=== PATIENT | female | born 1970 | race Caucasian/White ===

== ENCOUNTER 2016-12-14 13:40 | Inpatient (IN) | payer MEDICAID ==
--- NOTE | 2016-12-14 13:47 | EDPHY ---
H & P Time Seen by Provider: 12/14/16 13:46 HPI/ROS: CHIEF COMPLAINT: Abdominal pain, bloody diarrhea HISTORY OF PRESENT ILLNESS: The patient presents to the emergency department with abdominal pain and bloody diarrhea. The patient's symptoms began over the past day. The patient reports moderate to severe pain. She reports associated nausea. The patient is currently living at [facility]. She has been living air since the middle of October. She tells me she is receiving palliative care secondary to alcoholic cirrhosis. The patient reports she is on a number of medications for her end-stage liver disease. The patient denies recent antibiotic use. The patient denies prior history of dysentery or bloody diarrhea. REVIEW OF SYSTEMS: A comprehensive 10 point review of systems is otherwise negative aside from elements mentioned in the history of present illness. Source: Patient Exam Limitations: No limitations - Medical/Surgical History PMH: Past medical history: Cirrhosis - Family History Significant Family History: No pertinent family hx - Social History Smoking Status: Current some day smoker - Physical Exam Exam: General Appearance: Thin female, deconditioned, cachectic Eyes: Scleral icterus noted ENT, Mouth: Mucous membranes moist Respiratory: There are no retractions, lungs are clear to auscultation Cardiovascular: Regular rate and rhythm Gastrointestinal: Protuberant, mild fluid wave, tenderness to palpation left lower quadrant Neurological: A&O, normal motor function, normal sensory exam, normal cranial nerves Skin: Warm and dry, no rashes Musculoskeletal: Neck is supple nontender Extremities: symmetrical, full range of motion Constitutional: Initial Vital Signs Temperature (C) 36.8 C 12/14/16 13:56 Heart Rate 105 H 12/14/16 13:56 Respiratory Rate 18 12/14/16 13:56 Blood Pressure 115/70 12/14/16 13:56 O2 Sat (%) 94 12/14/16 13:56 O2 Delivery Mode Room Air O2 (L/minute) 2 Allergies/Adverse Reactions: No Known Allergies Allergy (Unverified 12/14/16 13:50) Home Medications: Medication Instructions Recorded Albuterol 12/14/16 BENADRYL 12/14/16 GUAIFENESIN 12/14/16 LACTULOSE 12/14/16 Lasix 12/14/16 Levemir 12/14/16 Lexapro 12/14/16 Multi-Vitamin Daily 12/14/16 Nicotine Patch 12/14/16 Ondansetron 12/14/16 Pepcid 12/14/16 Rifaximin 12/14/16 Spironolactone 12/14/16 oxyCODONE IR 12/14/16 traZODone 12/14/16 Medical Decision Making - Diagnostics Imaging Results: Imaging Impressions Abdomen CT 12/14/16 14:17 Impression: 1. Near diffuse colonic thickening suspicious for colitis. There is no evidence for perforation. 2. Splenomegaly with collateral veins and gastric varices, likely secondary to the chronically occluded splenic vein, which may be secondary to a previous episode of pancreatitis. 3. Airways disease. Pulmonary nodules may represent bronchiolitis. Results discussed with Conner Solis at 3:00 PM General information for patients regarding this examination can be found at [email or web address]. If you have questions or comments about this report, please contact me at [phone] (hospital) or [phone] (cell). ED Course/Re-evaluation: The patient presents to the ED for evaluation of significant abdominal pain. The patient reportedly has had bloody diarrhea. She does live at a senior living facility. The patient does have a history of cirrhosis and alcoholic hepatitis. She has a history of esophageal varices encephalopathy. She has chronic pancreatitis. The patient was noted to be fairly tender in her left lower quadrant. A CT scan of the abdomen pelvis was obtained which demonstrates evidence of colitis without perforation or abscess. The patient also has evidence of a chronic mesenteric thrombosis. The patient had an IV established. She received multiple doses of IV Dilaudid. The patient was reexamined at 4:30 p.m.. She continues to have significant abdominal tenderness. I have ordered a Clostridium difficile test. The patient will require admission to the hospital for pain control this evening. Consultation is made with Dr. Birmingham from the hospitalist service. Differential Diagnosis: Differential diagnosis considered includes colitis, diverticulitis, perforation , obstruction, appendicitis, peritonitis - Data Points Laboratory Results: Laboratory Results 12/14/16 14:10 12/14/16 14:10 12/14/16 12/14/16 12/14/16 14:10 14:10 14:10 WBC 10.99 10^3/uL H 10^3/uL (3.80-9.50) RBC 4.48 10^6/uL 10^6/uL (4.18-5.33) Hgb 13.7 g/dL g/dL (12.6-16.3) POC Hgb Hct 39.1 % % (38.0-47.0) POC Hct MCV 87.3 fL fL (81.5-99.8) MCH 30.6 pg pg (27.9-34.1) MCHC 35.0 g/dL g/dL (32.4-36.7) RDW 13.3 % % (11.5-15.2) Plt Count 193 10^3/uL 10^3/uL (150-400) MPV 9.6 fL fL (8.7-11.7) Neut % (Auto) 87.0 % H % (39.3-74.2) Lymph % (Auto) 7.4 % L % (15.0-45.0) [place] % (Auto) 4.8 % % (4.5-13.0) Eos % (Auto) 0.1 % L % (0.6-7.6) Baso % (Auto) 0.2 % L % (0.3-1.7) Nucleat RBC Rel Count 0.0 % % (0.0-0.2) Absolute Neuts (auto) 9.57 10^3/uL H 10^3/uL (1.70-6.50) Absolute Lymphs (auto) 0.81 10^3/uL L 10^3/uL (1.00-3.00) Absolute Monos (auto) 0.53 10^3/uL 10^3/uL (0.30-0.80) Absolute Eos (auto) 0.01 10^3/uL L 10^3/uL (0.03-0.40) Absolute Basos (auto) 0.02 10^3/uL 10^3/uL (0.02-0.10) Absolute Nucleated RBC 0.00 10^3/uL 10^3/uL (0-0.01) Immature Gran % 0.5 % % (0.0-1.1) Immature Gran # 0.05 10^3/uL 10^3/uL (0.00-0.10) PT 16.3 SEC H SEC (12.0-15.0) INR 1.31 H (0.83-1.16) APTT 38.5 SEC H SEC (23.0-38.0) POC Sodium Sodium 132 mEq/L L mEq/L (134-144) POC Potassium Potassium 3.6 mEq/L mEq/L (3.5-5.2) POC Chloride Chloride 99 mEq/L mEq/L (97-110) Carbon Dioxide 21 mEq/l L mEq/l (22-31) Anion Gap 12 mEq/L mEq/L (8-16) POC BUN BUN 6 mg/dL L mg/dL (7-23) Creatinine 0.4 mg/dL L mg/dL (0.6-1.0) POC Creatinine Estimated GFR > 60 Glucose 144 mg/dL H mg/dL (70-100) POC Glucose Calcium 9.6 mg/dL mg/dL (8.5-10.4) Lipase 15.0 IU/L L IU/L (23-300) 12/14/16 14:08 WBC RBC Hgb POC Hgb 14.6 gm/dL gm/dL (12.3-15.9) Hct POC Hct 43 % % (35.5-47.5) MCV MCH MCHC RDW Plt Count MPV Neut % (Auto) Lymph % (Auto) [place] % (Auto) Eos % (Auto) Baso % (Auto) Nucleat RBC Rel Count Absolute Neuts (auto) Absolute Lymphs (auto) Absolute Monos (auto) Absolute Eos (auto) Absolute Basos (auto) Absolute Nucleated RBC Immature Gran % Immature Gran # PT INR APTT POC Sodium 136 mEq/L mEq/L (134-144) Sodium POC Potassium 3.4 mEq/L mEq/L (3.3-5.0) Potassium POC Chloride 96 mEq/L mEq/L (96-108) Chloride Carbon Dioxide Anion Gap POC BUN 3 mg/dL L mg/dL (7-23) BUN Creatinine POC Creatinine 0.3 mg/dL L mg/dL (0.6-1.2) Estimated GFR Glucose POC Glucose 143 mg/dL H mg/dL (70-100) Calcium Lipase Medications Given: Discontinued Medications Hydromorphone HCl (Dilaudid) 0.5 mg IVP EDNOW ONE Stop: 12/14/16 15:03 Last Admin: 12/14/16 15:02 Dose: 0.5 mg Point of Care Test Results: 12/14/16 14:08 POC Sodium 136 POC Potassium 3.4 POC Chloride 96 POC BUN 3 L POC Creatinine 0.3 L POC Glucose 143 H Departure - Departure Disposition: Home, Routine, Self-Care Clinical Impression: Acute colitis Cirrhosis Qualifiers: Hepatic cirrhosis type: alcoholic cirrhosis Ascites presence: without ascites Qualified Code(s): K70.30 - Alcoholic cirrhosis of liver without ascites Condition: Fair Referrals: Patient,NotPresent [Unknown] - As per Instructions
[2016-12-14 14:18] LABS: % IMMATURE GRANULYOCYTES 0.5 % (0.0-1.1); ABSOLUTE IMMATURE GRANULOCYTES 0.05 10^3/uL (0.00-0.10); ADD DIFF? NO; ADD MORPH? NO; ADD SCAN? NO; ATYPICAL LYMPHOCYTE FLAG 0 (0-99); FRAGMENT RBC FLAG 0 (0-99); HEMATOCRIT 39.1 % (38.0-47.0); HEMOGLOBIN 13.7 g/dL (12.6-16.3); LEFT SHIFT FLG 10 (0-99); LIPEMIA HEMOLYSIS FLAG 90 (0-99); MEAN CELL HEMOGLOBIN 30.6 pg (27.9-34.1); MEAN CELL VOLUME 87.3 fL (81.5-99.8); MEAN PLATELET VOLUME 9.6 fL (8.7-11.7); PLATELET CLUMPS FLAG 0 (0-99); PLATELET COUNT 193 10^3/uL (150-400); RED BLOOD CELL COUNT 4.48 10^6/uL (4.18-5.33); RED CELL DISTRIBUTION WIDTH 13.3 % (11.5-15.2)
[2016-12-14] MEDS ORDERED: IOPAMIDOL (ISOVUE-300) 100 ML BTL IV ONE (14:26)
[2016-12-14 14:27] LABS: INR 1.31 (0.83-1.16); PROTIME(PATIENT) 16.3 SEC (12.0-15.0)
[2016-12-14 14:28] LABS: APTT 38.5 SEC (23.0-38.0)
[2016-12-14] MEDS ORDERED: HYDROmorphONE/DILAUDID 1 MG/ML SYR ONE (14:31)
[2016-12-14 14:32] LABS: ANION GAP 12 mEq/L (8-16); CALCIUM 9.6 mg/dL (8.5-10.4); CARBON DIOXIDE 21 mEq/l (22-31); CHLORIDE 99 mEq/L (97-110); CREATININE 0.4 mg/dL (0.6-1.0); GLOMERULAR FILTRATION RATE > 60; GLUCOSE 144 mg/dL (70-100); POTASSIUM 3.6 mEq/L (3.5-5.2); SODIUM 132 mEq/L (134-144)
[2016-12-14] MEDS ORDERED: HYDROmorphONE/DILAUDID 1 MG/ML SYR IVP ONE ×2 (15:02→16:52)
[2016-12-14] MEDS ORDERED: VANCOMYCIN 125 MG/2.5 ML UDL PO SCH (18:57)
[2016-12-14] MEDS ORDERED: D50W 25 GM/50 ML SYR IVP PRN (19:25)
[2016-12-14] MEDS ORDERED: PANTOPRAZOLE SODIUM 40 MG in NS 100 ML IV ONE (19:30)
[2016-12-14] MEDS: HYDROmorphONE/DILAUDID 1 MG/ML SYR IVP PRN (19:48)
[2016-12-14] MEDS: NS W/ 20 KCl/L 1,000 ML IV SCH (19:49)
[2016-12-14] MEDS ORDERED: PANTOPRAZOLE SODIUM 80 MG in NS 100 ML IV SCH (20:00)
[2016-12-14 20:13] LABS: ALBUMIN 3.6 g/dL (3.5-5.0); BILIRUBIN,TOTAL 1.8 mg/dL (0.1-1.4); BILIRUBIN-CONJUGATED 1.2 mg/dL (0.0-0.5); BILIRUBIN-UNCONJUGATED 0.6 mg/dL (0.0-1.1); TOTAL PROTEIN 7.9 g/dL (6.3-8.2)
--- NOTE | 2016-12-14 20:45 | GHP ---
[f rep st] HISTORY AND PHYSICAL DATE OF ADMISSION: 12/14/2016 CHIEF COMPLAINT: Abdominal pain, vomiting and bloody diarrhea. HISTORY OF PRESENT ILLNESS: The patient is a 46-year-old female with history of alcohol dependence who was recently hospitalized for alcoholic hepatitis and progressed to cirrhosis with hepatic encephalopathy requiring lactulose and Xifaxan. She was discharged from her most recent hospitalization in mid October 2016 to [facility]. She presents to the emergency department reporting general malaise last night and this morning awoke with bloody diarrhea which has occurred about 4 times today. She recently up- titrated her lactulose from twice daily to 3 times daily and reports having 3-4 stools a day at baseline. She has not had an increase in the frequency of her stool but the change has been the presence of bloody stool. She also reports vomiting though denies hematemesis or coffee-grounds emesis. She denies fevers or chills. She complains of crampy abdominal pain but has not had increased abdominal girth. She was initially admitted on September 27 to [facility] with alcohol withdrawal and an upper GI bleed, thought due to portal hypertensive gastropathy. She was discharged on October 04 but returned the following day with ascites and was started on Lasix and spironolactone. Later in September she was again admitted with acute alcoholic hepatitis with a bilirubin in the 20s and discriminant function greater than 40. She was treated with steroids with plans for 3 week taper though this was discontinued due to increasing bilirubin and it was felt the steroids were not providing benefit. In addition, she developed C diff diarrhea and was treated with oral vancomycin. She is unsure how long her treatment course was. She also suffered from influenza during that most recent hospitalization and developed hepatic encephalopathy at which time she was started on lactulose once her C diff diarrhea had resolved. She had been doing fairly well at [facility] since then and has followed up with GI the [facility]. During her last visit on December 12, it was noted that her abdominal girth had decreased from 36 inches to 33 inches. She has also had about a 5 pound weight loss from 99-95 pounds. Her edema has resolved. Her mentation has improved. She has maintained sobriety since September 24, 2016 , and wishes to pursue a liver transplant. She is followed by Dr. Jing Bersentes. In the emergency department, CT revealed diffuse colitis but no significant ascites. She is hemodynamically stable and afebrile. She was given a total of 1 g of IV hydromorphone for pain control and is admitted to the hospital for further management. PAST MEDICAL HISTORY: 1. Alcoholic hepatitis. 2. Alcoholic cirrhosis with a MELD score of 27 in October of 2016. This is improved to 5 per her labs 2 days ago. 3. Diabetes mellitus. 4. Hepatic encephalopathy. 5. History of chronic pancreatitis. 6. Malnutrition. MEDICATIONS: Please see [employer] for complete updated outpatient medication list. ALLERGIES: No known drug allergies. SOCIAL HISTORY: The patient lives at [facility]. She denies tobacco use. She is a former smoker, quit in September 27, 2016. Previously had at least a 15 pack year history. She is abstinent from alcohol. 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 She is . There are no family members at her bedside. FAMILY HISTORY: Reviewed and noncontributory. REVIEW OF SYSTEMS: A 10-point review of systems was performed and is negative except as per HPI. OBJECTIVE: VITAL SIGNS: Temperature 36.6, blood pressure 120/80, heart rate 77 , respiratory rate is 16. She is 94% on room air. GENERAL: The patient is awake, alert, oriented, no acute distress. She appears malnourished. HEENT: Head is atraumatic, normocephalic. Pupils equal, round, react to light. Extraocular muscles intact. Oropharynx is clear. Mucous membranes are dry. NECK: Supple. There is no JVD. HEART: Regular rate and rhythm without murmur. LUNGS: Clear to auscultation bilaterally. ABDOMEN: Soft, nondistended. There is diffuse mild tenderness to palpation in all 4 quadrants with some voluntary guarding. No rebound, rigidity or peritoneal signs are detected. Fluid wave is negative. EXTREMITIES: Without cyanosis, clubbing, or edema. NEUROLOGIC: Grossly nonfocal. There is no asterixis. LABORATORY DATA: CBC reveals a white blood cell count of 10.9 with 87% neutrophils. INR is 1.3. Complete metabolic panel is remarkable for sodium 132 , bicarb 21, BUN 6, creatinine 0.4, glucose 144, lipase is normal at 15. Abdomen CT from the emergency department shows diffuse colon thickening, suspicious for colitis. No evidence of perforation, obstruction or ascites. ASSESSMENT AND PLAN: The patient is a 46-year-old female with history of alcoholic cirrhosis, hepatic encephalopathy and history of Clostridium difficile who is admitted to the hospital with bloody diarrhea. 1. Colitis with bloody diarrhea. I am most concerned for infectious colitis, specifically recurrent Clostridium difficile given her history of prior Clostridium difficile 2 months ago. GI pathogen panel is ordered. I am going to treat her empirically with oral vancomycin but given her vomiting I will also cover her with IV Flagyl. I discussed the case with Gastroenterology who will see the patient tomorrow. Will trend q.8 hour hemoglobin and hematocrit. IVF's for hydration. She will be given a PPI and clear liquid diet as tolerated for now. 2. Alcoholic cirrhosis with a history of ascites. She currently has no appreciable ascites on her imaging. Her MELD score has improved from 27 in September 2016 to 5.5, per her labs 2 days ago. Since she is hemodynamically stable, I will plan to continue her diuretics as soon as her med rec is completed. She will be placed on a sodium restricted diet. She had a negative AFP in October of 2016. 3. History of gastric varices. There has been no hematemesis suggestive of an active variceal bleed. Will start PPI. Should she develop any hematemesis, I will add an octreotide drip though at this point, this does not seem to be the source of bleeding. 4. Hepatic encephalopathy. Given her pain in the setting of colitis and frequent diarrheal stools, I am going to hold her lactulose for now though I will continue her Xifaxan once her med rec is completed. 5. Diabetes mellitus. Will order sliding scale insulin for now while we await medication reconciliation. We can resume her basal insulin at that time. Her blood sugars were fairly well controlled with a blood sugar of 140 on arrival. 6. History of Clostridium difficile. 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 We may consider discussing this with Infectious Disease to see if she is a candidate for fidaxomicin. 7. DVT prophylaxis. Pharmacologic prophylaxis is contraindicated given her rectal bleeding. We will place SCDs. 8. Disposition. Patient admitted to inpatient status. I suspect she will require greater than 48 hours hospitalization for ongoing management of her colitis and chronic cirrhosis. CODE STATUS: Patient is full code. /[id number]/MODL MTDD
[2016-12-14] MEDS: VANCOMYCIN 125 MG/2.5 ML UDL PO SCH (21:07)
[2016-12-14] MEDS: ONDANSETRON DISINTEGRATING 4 MG TAB PO PRN (21:13)
[2016-12-14] MEDS: ONDANSETRON 4 MG/2 ML VIAL IVP PRN (21:51)
[2016-12-14 22:27] LABS: HEMATOCRIT 39.8 % (38.0-47.0); HEMOGLOBIN 13.8 g/dL (12.6-16.3)
[2016-12-14] MEDS ORDERED: METOCLOPRAMIDE 10 MG/2 ML VIAL IVP PRN (23:22)
[2016-12-14] MEDS ORDERED: HYDROmorphONE/DILAUDID 2 MG/ML INJ IVP ONE (23:24)
[2016-12-15] MEDS: PANTOPRAZOLE SODIUM 80 MG in NS 100 ML IV SCH ×2 (00:33→10:07)
[2016-12-15] MEDS ORDERED: FLUTICASONE NASAL 120 SPRAYS/16 GM MDI EACHNARE PRN (01:18)
[2016-12-15] MEDS ORDERED: CLOBETASOL PROPIONATE TP PRN (01:18)
[2016-12-15] MEDS ORDERED: OXYCODONE HCL 10 MG PO PRN (01:18)
[2016-12-15] MEDS ORDERED: ALBUTEROL 60 PUFFS/8 GM MDI IH PRN (01:18)
[2016-12-15] MEDS ORDERED: traZODone 50 MG TAB PO PRN (01:18)
[2016-12-15] MEDS: HYDROmorphONE/DILAUDID 1 MG/ML SYR IVP PRN ×2 (03:10→08:02)
[2016-12-15] MEDS: ONDANSETRON 4 MG/2 ML VIAL IVP PRN (03:10)
[2016-12-15] MEDS: VANCOMYCIN 125 MG/2.5 ML UDL PO SCH ×2 (05:01→13:46)
[2016-12-15] MEDS: oxyCODONE IR 5 MG TAB PO PRN ×6 (05:02→21:39)
[2016-12-15 05:26] LABS: % IMMATURE GRANULYOCYTES 0.3 % (0.0-1.1); ABSOLUTE IMMATURE GRANULOCYTES 0.05 10^3/uL (0.00-0.10); ADD DIFF? NO; ADD MORPH? NO; ADD SCAN? NO; ATYPICAL LYMPHOCYTE FLAG 10 (0-99); FRAGMENT RBC FLAG 0 (0-99); HEMATOCRIT 37.9 % (38.0-47.0); HEMOGLOBIN 13.2 g/dL (12.6-16.3); LEFT SHIFT FLG 10 (0-99); LIPEMIA HEMOLYSIS FLAG 90 (0-99); MEAN CELL HEMOGLOBIN 30.8 pg (27.9-34.1); MEAN CELL HEMOGLOBIN CONCENTR. 34.8 g/dL (32.4-36.7); MEAN CELL VOLUME 88.3 fL (81.5-99.8); MEAN PLATELET VOLUME 9.8 fL (8.7-11.7); PLATELET CLUMPS FLAG 10 (0-99); PLATELET COUNT 209 10^3/uL (150-400); RED BLOOD CELL COUNT 4.29 10^6/uL (4.18-5.33); RED CELL DISTRIBUTION WIDTH 13.6 % (11.5-15.2)
[2016-12-15 05:33] LABS: ANION GAP 11 mEq/L (8-16); CALCIUM 9.2 mg/dL (8.5-10.4); CARBON DIOXIDE 22 mEq/l (22-31); CHLORIDE 101 mEq/L (97-110); CREATININE 0.4 mg/dL (0.6-1.0); GLOMERULAR FILTRATION RATE > 60; GLUCOSE 141 mg/dL (70-100); POTASSIUM 3.6 mEq/L (3.5-5.2); SODIUM 134 mEq/L (134-144)
[2016-12-15] MEDS: ONDANSETRON DISINTEGRATING 4 MG TAB PO PRN ×2 (08:03→16:57)
[2016-12-15] MEDS: ESCITALOPRAM OXALATE 10 MG TAB PO SCH (08:13)
[2016-12-15] MEDS: RIFAXIMIN 550 MG TAB PO SCH ×2 (08:13→21:39)
[2016-12-15] MEDS: INSULIN LISPRO 100 UNIT/ML SC SCH ×3 (08:49→18:14)
[2016-12-15] MEDS: NICOTINE 14 MG/24 HR PATCH TD SCH (08:50)
[2016-12-15] MEDS ORDERED: FUROSEMIDE 40 MG TAB PO SCH (09:00)
[2016-12-15] MEDS ORDERED: SPIRONOLACTONE 50 MG TAB PO SCH (09:00)
--- NOTE | 2016-12-15 11:11 | GCON ---
[f rep st] CONSULTATION GI CONSULTATION. DATE OF CONSULTATION: 12/15/2016 REASON FOR CONSULTATION: Bloody diarrhea. HISTORY OF PRESENT ILLNESS: The patient is a 46-year-old female, who has been followed in our practice for history of alcoholic hepatitis and cirrhosis, diabetes mellitus, portal vein thrombosis with gastric varices and history of hepatic encephalopathy. She was last seen in our practice on 12/12/2016 by Patsy Rutledge PA-C and was doing well at that time on Xifaxan 550 mg p.o. twice daily for treatment of portal systemic encephalopathy. She was to follow up with Dr. Blanco in our practice today, albeit was hospitalized yesterday with acute onset of bloody diarrhea, and myalgias and arthralgias. I was asked by Dr. Birmingham to see the patient today for further evaluation and treatment of these symptoms. Since admission, she was been on IV PPI therapy and IV metronidazole and has had no further diarrhea. She continues to complain of myalgias and arthralgias requiring narcotics. She has denied any hematemesis, nausea or vomiting or mental confusion. MEDICATIONS(prior to admission): Albuterol inhaler 2 puffs twice daily. Bisacodyl 5 mg daily for constipation. Famotidine 20 mg p.o. daily. Furosemide 40 mg p.o. daily. Levemir 100 units subcu twice daily. NicoDerm patch q.24 hours. Oxycodone 10 mg p.o. three times daily p.r.n. pain. Rifaximin 550 mg p.o. twice daily. Spironolactone 50 mg p.o. twice daily. Trazodone 50 mg p.o. as needed for insomnia. ALLERGIES: None. PAST MEDICAL HISTORY: significant for alcoholic hepatitis, alcoholic cirrhosis , splenic vein thrombosis with gastric varices documented on EGD on 09/2016, history of hepatic encephalopathy, history of alcoholic pancreatitis, diabetes mellitus and COPD/asthma. PAST SURGICAL HISTORY: significant for x3, tubal ligation and endoscopy as noted above. Her last colonoscopy was performed in [address] [facility] and was reported as normal. SOCIAL HISTORY: She is disabled. She lives in [place]. She does not smoke tobacco though has been heavy smoker in the past. She has abstained from alcohol over the last several months. FAMILY HISTORY: Negative for GI malignancies or liver disease. REVIEW OF SYSTEMS: Significant for fatigue, myalgias, arthralgias, bloody diarrhea and abdominal cramping. Otherwise negative for comprehensive review of systems. PHYSICAL EXAMINATION: VITAL SIGNS: VITALS: temperature is 36.8 Celsius, pulse is 116 and regular, blood pressure 117/83, respiratory rate was 18, O2 saturation 96% on room air. GENERAL: A frail appearing cachectic woman lying in bed, appearing uncomfortable. INTEGUMENT: Mildly hyperpigmented. HEENT: Head atraumatic, normocephalic. Pupils equal, round, reactive to light. EOMs were intact. Sclerae nonicteric. Nares patent. Mucous membranes moist. Dentition fair. NECK: Supple. Trachea was midline. LYMPHATICS: No palpable cervical or axillary adenopathy. PULMONARY: Lungs clear to percussion and auscultation. CARDIOVASCULAR: Rapid rate. Normal S1, S2 without murmur. Peripheral pulses strong bilaterally. No pedal edema. GASTROINTESTINAL: Positive bowel sounds. Tenderness in all 4 quadrants to deep palpation without palpable mass or rebound. Positive spleen tip. No fluid wave noted. No shifting dullness or rebound tenderness. EXTREMITIES: Without deformity. NEURO: Patient was alert and oriented x3. There are no focal neurologic deficits. LABORATORY DATA: White count 16.43, hemoglobin 13.2, hematocrit 37.5, platelets 209,000. ProTime 16.3, INR 1.31, PTT 38.5. Sodium 134, potassium 3.6 , chloride 101, CO2 22, BUN 7, creatinine 0.4, bilirubin 1.8, conjugated 1.2, unconjugated 0.6, AST 36, ALT 24, ALP 173, lipase 15. Stool: PCR for GI infection was negative. CT scan of the abdomen revealed splenomegaly, splenic vein thrombosis, liver of normal size and homogeneous, collateral vessels of the splenic hilum with gastric varices. No esophageal varices. No ascites. Scattered calcifications throughout the pancreas consistent with chronic pancreatitis. There was thickening of the right and left colon wall consistent with acute colitis. IMPRESSION: 1. Acute onset diarrhea with blood in stool, likely acute infectious colitis, unlikely ischemic colitis as involvement in the entire colon and also unlikely inflammatory bowel disease. 2. Alcoholic liver disease with cirrhosis by history. 3. Splenic vein thrombosis with gastric varices. 4. Diabetes mellitus. 5. Chronic obstructive pulmonary disease/asthma. RECOMMENDATIONS: 1. IV hydration. 2. Continue with metronidazole. 3. Would continue with rifaximin 550 mg p.o. twice daily. 4. No need for acute evaluation with colonoscopy at this time. 5. Will follow with you. /[id number]/MODL MTDD
[2016-12-15] MEDS: NS W/ 20 KCl/L 1,000 ML IV SCH ×2 (13:39→21:37)
--- NOTE | 2016-12-15 13:58 | HOSPPROG ---
Hospitalist Progress Note Assessment/Plan: 46 yo F w cirrhosis here w BRBPR, colitis ?variceal bleed: i dont think so does have varices but no real hct drop despite IVF and BRBPR 1. dc ppi gtt- gibe daily po 2. follow hct bid colitis: gi pathogen panel neg, includimg for cdiff dc po vancomycin alcoholism: sober X almost three months cirrhosis: volume depleted by exam, so hold diuretics X 24 hours, especially while on IVF inr 1.3 proph: pharm VTE proph contraindicated given bleeding Subjective: case d/w dr khan. ct reviewed/interpreted by me- colitis Objective: Vital Signs Temp Pulse Resp BP Pulse Ox 37.1 C 101 H 17 102/69 98 12/15/16 11:25 12/15/16 11:25 12/15/16 11:25 12/15/16 11:25 12/15/16 11:25 Microbiology 12/14/16 20:06 Gastrointestinal Tract Panel (PCR) - Final Stool No Organism Detected Laboratory Results 12/15/16 04:38 12/14/16 12/15/16 12/16/16 05:59 05:59 05:59 Intake Total 971 1064 Output Total 600 Balance 371 1064 PT 16.3 SEC (12.0-15.0) H 12/14/16 14:10 INR 1.31 (0.83-1.16) H 12/14/16 14:10 - Physical Exam Constitutional: no apparent distress, appears nourished Eyes: PERRL, EOMI, icteric sclera Ears, Nose, Mouth, Throat: moist mucous membranes, hearing normal Cardiovascular: regular rate and rhythym, no murmur, rub, or gallop Respiratory: no respiratory distress, no rales or rhonchi Gastrointestinal: normoactive bowel sounds, soft, non-tender abdomen, No ascites , No guarding, No rebound Genitourinary: no bladder fullness, no bladder tenderness Skin: warm, normal color Musculoskeletal: full muscle strength ICD10 Worksheet Patient Problems: Problems Problem Status Onset Acute colitis Acute Cirrhosis Acute
[2016-12-15 14:05] LABS: HEMATOCRIT 36.9 % (38.0-47.0); HEMOGLOBIN 12.9 g/dL (12.6-16.3)
[2016-12-15] MEDS: INSULIN GLARGINE 100 UNITS/ML SYRINGE SC SCH (21:38)
[2016-12-16] MEDS: oxyCODONE IR 5 MG TAB PO PRN ×4 (00:33→22:09)
[2016-12-16] MEDS ORDERED: NS 500 ML IV ONE ×2 (02:22→11:30)
[2016-12-16] MEDS: KETOROLAC 30 MG/1 ML SDV IVP PRN ×3 (04:11→18:27)
[2016-12-16] MEDS: INSULIN LISPRO 100 UNIT/ML SC SCH ×3 (08:40→18:21)
[2016-12-16] MEDS: NICOTINE 14 MG/24 HR PATCH TD SCH (08:42)
[2016-12-16] MEDS: RIFAXIMIN 550 MG TAB PO SCH ×2 (08:43→22:08)
[2016-12-16] MEDS: ESCITALOPRAM OXALATE 10 MG TAB PO SCH (08:43)
[2016-12-16] MEDS ORDERED: NS 1,000 ML IV ONE (11:18)
--- NOTE | 2016-12-16 11:24 | HOSPPROG ---
Hospitalist Progress Note Assessment/Plan: 46 yo F w cirrhosis here w BRBPR, colitis ?variceal bleed: i dont think so does have varices but no real hct drop despite IVF and BRBPR 1. dc ppi gtt- gibe daily po 2. follow hct bid 3. hct stable colitis: gi pathogen panel neg, includimg for cdiff given cirrhosis, will treat w cipro/flagyl hypotension: suspect volume depletion in a patient w cirrhosis 1. dc diuretics 2. bolus 1 L diet: advance to regular alcoholism: sober X almost three months cirrhosis: volume depleted by exam, so hold diuretics X 24 hours, especially while on IVF inr 1.3 proph: pharm VTE proph contraindicated given bleeding Subjective: triggered sepsis alert this AM 2/2 hypotension. no further BRBPR. lasix given despite being held Objective: Vital Signs Temp Pulse Resp BP Pulse Ox 36.3 C 100 16 76/42 L 94 12/16/16 08:00 12/16/16 10:42 12/16/16 10:42 12/16/16 10:42 12/16/16 08:00 Microbiology 12/14/16 20:06 Gastrointestinal Tract Panel (PCR) - Final Stool No Organism Detected Laboratory Results 12/15/16 13:48 12/15/16 04:38 12/15/16 12/16/16 12/17/16 05:59 05:59 05:59 Intake Total 971 4039 Output Total 600 1100 500 Balance 371 2939 -500 PT 16.3 SEC (12.0-15.0) H 12/14/16 14:10 INR 1.31 (0.83-1.16) H 12/14/16 14:10 - Physical Exam Constitutional: no apparent distress, appears nourished Eyes: PERRL Ears, Nose, Mouth, Throat: moist mucous membranes, hearing normal Cardiovascular: regular rate and rhythym, no murmur, rub, or gallop Respiratory: no respiratory distress, no rales or rhonchi Gastrointestinal: normoactive bowel sounds, soft, non-tender abdomen Genitourinary: No irene in urethra Skin: warm, normal color Musculoskeletal: full muscle strength, no muscle tenderness Neurologic: AAOx3, sensation intact bilaterally Psychiatric: interacting appropriately, not anxious Lymph, Heme, Immunologic: no cervical LAD ICD10 Worksheet Patient Problems: Problems Problem Status Onset Acute colitis Acute Cirrhosis Acute
[2016-12-16 11:25] LABS: % IMMATURE GRANULYOCYTES 0.3 % (0.0-1.1); ABSOLUTE IMMATURE GRANULOCYTES 0.02 10^3/uL (0.00-0.10); ADD DIFF? NO; ADD MORPH? NO; ADD SCAN? NO; ATYPICAL LYMPHOCYTE FLAG 0 (0-99); FRAGMENT RBC FLAG 0 (0-99); HEMATOCRIT 31.4 % (38.0-47.0); HEMOGLOBIN 10.6 g/dL (12.6-16.3); LEFT SHIFT FLG 10 (0-99); LIPEMIA HEMOLYSIS FLAG 90 (0-99); MEAN CELL HEMOGLOBIN CONCENTR. 33.8 g/dL (32.4-36.7); MEAN CELL VOLUME 91.8 fL (81.5-99.8); MEAN PLATELET VOLUME 9.4 fL (8.7-11.7); PLATELET CLUMPS FLAG 0 (0-99); PLATELET COUNT 115 10^3/uL (150-400); RED BLOOD CELL COUNT 3.42 10^6/uL (4.18-5.33); RED CELL DISTRIBUTION WIDTH 13.5 % (11.5-15.2)
[2016-12-16] MEDS: CIPROFLOXACIN 400 MG/DEXTROSE 200 ML IV SCH ×2 (11:35→22:08)
[2016-12-16 11:48] LABS: ANION GAP 4 mEq/L (8-16); CALCIUM 7.7 mg/dL (8.5-10.4); CARBON DIOXIDE 22 mEq/l (22-31); CHLORIDE 109 mEq/L (97-110); CREATININE 0.4 mg/dL (0.6-1.0); GLOMERULAR FILTRATION RATE > 60; GLUCOSE 202 mg/dL (70-100); POTASSIUM 3.6 mEq/L (3.5-5.2); SODIUM 135 mEq/L (134-144)
--- NOTE | 2016-12-16 13:32 | SOAPPROG ---
SOAP Progress Note Assessment/Plan: Assessment: 1. Diarrhea; resolved(likely acute self-limited infectious colitis) 2. Chronic liver disease; stable. Plan: 1. I will sign off today; please call for further GI issues. 2. Patient to F/U with Dr Blanco next week. Adam Ruvalcaba MD 12/16/16 13:29 Subjective: CC: Diarrhea. Interval HPI: Patient have one formed BM today without cramping or blood in stool. Energy level better. Myalgias and arthralgias resolved. Objective: Vital Signs Temp Pulse Resp BP Pulse Ox 36.8 C 99 18 83/53 L 94 12/16/16 11:56 12/16/16 11:56 12/16/16 11:56 12/16/16 11:56 12/16/16 11:56 Laboratory Results 12/16/16 11:15 12/16/16 11:15 12/15/16 12/16/16 12/17/16 05:59 05:59 05:59 Intake Total 971 4039 Output Total 600 1100 500 Balance 371 2939 -500 PT 16.3 SEC (12.0-15.0) H 12/14/16 14:10 INR 1.31 (0.83-1.16) H 12/14/16 14:10 Physical Exam - Physical Exam General Appearance: alert, no apparent distress Respiratory: lungs clear, normal breath sounds Cardiac/Chest: normal peripheral pulses, regular rate, rhythm Abdomen: normal bowel sounds, non-tender, soft Skin: normal color, warm/dry Neuro/Psych: alert, normal mood/affect, oriented x 3 ICD10 Worksheet Patient Problems: Problems Problem Status Onset Acute colitis Acute Cirrhosis Acute
[2016-12-16] MEDS: INSULIN GLARGINE 100 UNITS/ML SYRINGE SC SCH (22:09)
[2016-12-17] MEDS: KETOROLAC 30 MG/1 ML SDV IVP PRN ×2 (05:00→10:54)
[2016-12-17] MEDS: oxyCODONE IR 5 MG TAB PO PRN (05:01)
[2016-12-17 05:32] LABS: % IMMATURE GRANULYOCYTES 0.4 % (0.0-1.1); ABSOLUTE IMMATURE GRANULOCYTES 0.02 10^3/uL (0.00-0.10); ADD DIFF? NO; ADD MORPH? NO; ADD SCAN? NO; ATYPICAL LYMPHOCYTE FLAG 10 (0-99); FRAGMENT RBC FLAG 0 (0-99); HEMATOCRIT 33.1 % (38.0-47.0); HEMOGLOBIN 11.1 g/dL (12.6-16.3); LEFT SHIFT FLG 0 (0-99); LIPEMIA HEMOLYSIS FLAG 80 (0-99); MEAN CELL HEMOGLOBIN 30.7 pg (27.9-34.1); MEAN CELL HEMOGLOBIN CONCENTR. 33.5 g/dL (32.4-36.7); MEAN CELL VOLUME 91.4 fL (81.5-99.8); MEAN PLATELET VOLUME 9.6 fL (8.7-11.7); PLATELET CLUMPS FLAG 0 (0-99); PLATELET COUNT 117 10^3/uL (150-400); RED BLOOD CELL COUNT 3.62 10^6/uL (4.18-5.33); RED CELL DISTRIBUTION WIDTH 13.1 % (11.5-15.2)
[2016-12-17 05:41] LABS: ANION GAP 5 mEq/L (8-16); CALCIUM 8.1 mg/dL (8.5-10.4); CARBON DIOXIDE 20 mEq/l (22-31); CHLORIDE 112 mEq/L (97-110); CREATININE 0.4 mg/dL (0.6-1.0); GLOMERULAR FILTRATION RATE > 60; GLUCOSE 75 mg/dL (70-100); POTASSIUM 3.4 mEq/L (3.5-5.2); SODIUM 137 mEq/L (134-144)
[2016-12-17] MEDS: INSULIN LISPRO 100 UNIT/ML SC SCH ×2 (08:45→13:26)
[2016-12-17] MEDS: NICOTINE 14 MG/24 HR PATCH TD SCH (08:55)
[2016-12-17] MEDS: RIFAXIMIN 550 MG TAB PO SCH (08:56)
[2016-12-17] MEDS: ESCITALOPRAM OXALATE 10 MG TAB PO SCH (08:57)
[2016-12-17] MEDS: CIPROFLOXACIN 400 MG/DEXTROSE 200 ML IV SCH (09:40)
[2016-12-17 11:34] VITALS: BP 89/59; PULSE 93; RESP 14; TEMP 98.4; O2SAT 97
--- NOTE | 2016-12-17 13:26 | HOSPPROG ---
Hospitalist Progress Note Assessment/Plan: 46 yo F w cirrhosis here w BRBPR, colitis ?variceal bleed: i dont think so does have varices but no real hct drop despite IVF and BRBPR 1. dc ppi gtt- gibe daily po 2. follow hct bid 3. hct stable colitis: gi pathogen panel neg, includimg for cdiff given cirrhosis, will treat w cipro/flagyl hypotension: suspect volume depletion in a patient w cirrhosis 1. dc diuretics 2. bolus 1 L diet: advance to regular alcoholism: sober X almost three months cirrhosis: volume depleted by exam, so hold diuretics X 24 hours, especially while on IVF inr 1.3 proph: dc to snf (lives there ) today > 30 minutes on dc Subjective: feels well. amenable to dc Objective: Vital Signs Temp Pulse Resp BP Pulse Ox 36.9 C 93 14 89/59 L 97 12/17/16 11:33 12/17/16 11:33 12/17/16 11:33 12/17/16 11:33 12/17/16 11:33 Laboratory Results 12/17/16 04:59 12/17/16 04:59 12/16/16 12/17/16 12/18/16 05:59 05:59 05:59 Intake Total 4039 850 Output Total 1100 2600 Balance 2939 -1750 PT 16.3 SEC (12.0-15.0) H 12/14/16 14:10 INR 1.31 (0.83-1.16) H 12/14/16 14:10 - Physical Exam Constitutional: no apparent distress, appears nourished Eyes: PERRL, anicteric sclera Ears, Nose, Mouth, Throat: moist mucous membranes, hearing normal Cardiovascular: regular rate and rhythym, no murmur, rub, or gallop Respiratory: no respiratory distress, no rales or rhonchi Gastrointestinal: normoactive bowel sounds, No ascites, No michael's sign, No guarding, No rebound Genitourinary: no bladder fullness Skin: warm, normal color Musculoskeletal: full muscle strength Neurologic: AAOx3 ICD10 Worksheet Patient Problems: Problems Problem Status Onset Acute colitis Acute Cirrhosis Acute
--- NOTE | 2016-12-17 13:30 | PDIAF ---
- Diagnosis Diagnosis: colitis; cirrhosis - Medication Management Discharge Medications: Medications to Continue on Transfer Albuterol [Proventil Inhaler HFA (*)] 2 puffs IH Q8H PRN 12/14/16 [Last Taken Unknown] Bisacodyl [Dulcolax] 5 mg PO DAILY PRN 12/14/16 [Last Taken Unknown] Bisacodyl [Dulcolax] 10 mg RC AD PRN 12/14/16 [Last Taken Unknown] Clobetasol Propionate [Clobex] 1 bhupinder TP BID PRN 12/14/16 [Last Taken Unknown] Escitalopram Oxalate [Lexapro] 5 mg PO DAILY 12/14/16 [Last Taken 12/12/16] Famotidine [Pepcid 20 MG (*)] 20 mg PO DAILY 12/14/16 [Last Taken 12/14/16] Fluticasone Nasal [Flonase Nasal [place]] 2 sprays NASAL BID PRN 12/14/16 [Last Taken Unknown] Furosemide [Lasix 40 MG (*)] 40 mg PO DAILY 12/14/16 [Last Taken 12/13/16] Hydrocortisone 1% [Hydrocortisone 1% cream (*)] 1 bhupinder TP Q12H PRN 12/14/16 [ Last Taken Unknown] Insulin Detemir [Levemir] 10 unit SQ HS 12/14/16 [Last Taken 12/13/16] Lactulose [Enulose] 30 ml PO TID PRN 12/14/16 [Last Taken 12/13/16] Multivitamins [Multivitamin (*)] 1 each PO DAILY 12/14/16 [Last Taken 12/12/16] Nicotine [Nicoderm Cq 14 mg (*)] 14 mg TD DAILY 12/14/16 [Last Taken Unknown] Ondansetron Odt [Zofran Odt 4 mg (*)] 4 mg PO Q6H PRN 12/14/16 [Last Taken 12/14] Oxycodone HCl [Dazidox] 10 mg PO Q8H PRN 12/14/16 [Last Taken 12/14/16 08:00] Rifaximin [Xifaxan] 550 mg PO BID 12/14/16 [Last Taken 12/11/16] Spironolactone [Aldactone] 50 mg PO BID 12/14/16 [Last Taken 12/13/16] guaiFENesin [Mucinex 600 MG (*)] 1,200 mg PO Q12H PRN 12/14/16 [Last Taken Unknown] traZODone [traZODONE 50MG (*)] 25 mg PO HS PRN 12/14/16 [Last Taken Unknown] Ciprofloxacin HCl [Ciprofloxacin] 500 mg PO BID #10 tablet 12/17/16 [Last Taken Unknown] Metronidazole 500 mg PO TID #15 tablet 12/17/16 [Last Taken Unknown] Discharge Medications: Refer to the Discharge Home Medication list for PRN reason. - Orders Services needed: Registered Nurse, Certified [employer] [place], Physical Therapy, Occupational Therapy - Follow Up Care Current Providers and Referrals: Patient,NotPresent [Unknown] - As per Instructions
--- NOTE | 2016-12-17 13:52 | GDS ---
[f rep st] DISCHARGE SUMMARY DISCHARGE DIAGNOSES: 1. Colitis with negative micro. 2. History of alcoholic cirrhosis. 3. Diabetes. HOSPITAL COURSE: Please see admission history and physical by Dr. Mame [place]. The patient prese nted with bright red blood per rectum. There was some concern this represented a variceal bleed, as she has a known history of varices. She had a small fall in her hemoglobin from 13 on presentation to 11. She had really 1 day of bright red blood per rectum. She had no hematemesis or coffee-grou nd emesis. She did not have ascites. She did not have melena. She had a CT scan showing pancoliti s. Stool cultures were negative. Given her cirrhosis with relative immunosuppression, I opted to t reat with Cipro and Flagyl for a total of 5 days. She is discharged back home to [facility] where s he resides. She was ruled out for C diff. /[id number]/MODL
== END 2016-12-17 15:00 | DRG 392 ==
LOC: EDUNIT# → F3N 17:27 → OBSVTOIN 18:47
PROVIDERS: ADMIT Hospitalist; ATTEND Hospitalist
DX: K52.9 Noninfective gastroenteritis and colitis, unspecified (principal); I95.9 Hypotension, unspecified; E11.9 Type 2 diabetes mellitus without complications; J44.9 Chronic obstructive pulmonary disease, unspecified; K70.30 Alcoholic cirrhosis of liver without ascites; F10.20 Alcohol dependence, uncomplicated
CPT/HCPCS: 82947-QW; 96374; J0744; J1170; J1815; J1885; J2405; J2765; Q9967

== ENCOUNTER → 2017-01-03 | Outpatient (CLI) | payer MEDICAID | LOC: FIMAGING 11:39 | PROVIDERS: ATTEND Nurse Practitioner Women's Health | DX: Z12.31 Encounter for screening mammogram for malignant neoplasm of breast (principal); Z80.3 Family history of malignant neoplasm of breast | CPT/HCPCS: G0202 ==

== ENCOUNTER 2017-03-14 09:12 | Day surgery (SDC) | payer MEDICAID ==
[2017-03-14] MEDS ORDERED: LIDOCAINE 1% 2 ML INJ ID PRN (09:38)
[2017-03-14] MEDS ORDERED: LR 1,000 ML IV ONE (09:38)
[2017-03-14] MEDS ORDERED: LIDOCAINE 1% 2 ML INJ ONE (09:43)
[2017-03-14 10:15] VITALS: PULSE 85
[2017-03-14] MEDS ORDERED: oxyCODONE IR 5 MG TAB PO ONE (10:45)
[2017-03-14 10:47] LABS: ANION GAP 14 mEq/L (8-16); CALCIUM 10.1 mg/dL (8.5-10.4); CARBON DIOXIDE 21 mEq/l (22-31); CHLORIDE 105 mEq/L (97-110); CREATININE 0.5 mg/dL (0.6-1.0); GLOMERULAR FILTRATION RATE > 60; GLUCOSE 102 mg/dL (70-100); POTASSIUM 4.6 mEq/L (3.5-5.2); SODIUM 140 mEq/L (134-144)
[2017-03-14] MEDS ORDERED: NALOXONE HCL 0.4 MG/ML INJ IVP PRN (11:36)
[2017-03-14] MEDS ORDERED: ACETAMINOPHEN 500 MG TAB PO PRN (11:36)
[2017-03-14] MEDS ORDERED: ONDANSETRON 4 MG/2 ML VIAL IVP PRN (11:36)
--- NOTE | 2017-03-14 11:39 | PDANEPAE ---
ANE History of Present Illness Colonoscopy ANE Past Medical History - Cardiovascular History Hx Hypertension: No Hx Arrhythmias: No Hx Chest Pain: No Hx Coronary Artery / Peripheral Vascular Disease: No Hx CHF / Valvular Disease: No Hx Palpitations: No - Pulmonary History Hx COPD: Yes Hx Asthma/Reactive Airway Disease: No Hx Recent Upper Respiratory Infection: No Hx Oxygen in Use at Home: No Hx Sleep Apnea: Yes Sleep Apnea Screening Result - Last Documented: Positive - Neurologic History Hx Cerebrovascular Accident: No Hx Seizures: No Hx Dementia: No - Endocrine History Hx Diabetes: Yes Endocrine History Comment: DM II - Renal History Hx Renal Disorders: No - Liver History Hx Hepatic Disorders: Yes Hepatic History Comment: CIRRHOSIS LIVER END STAGE. CHRONIC PANCREATITIS - Neurological & Psychiatric Hx Hx Neurological and Psychiatric Disorders: Yes Neurological / Psychiatric History Comment: ANXIETY & DEPRESSION - Cancer History Hx Cancer: No - Congenital Disorder History Hx Congenital Disorders: No - GI History Hx Gastrointestinal Disorders: Yes Gastrointestinal History Comment: ACID REFLUX. ESOPHAGEAL CHERELLE - Other Health History Other Health History: NEG - Chronic Pain History Chronic Pain: Yes - Surgical History Prior Surgeries: C SECTION X3. TUBAL LIGATION. MATTIE FX HIPS. AKIL PLACED R HIP ANE Review of Systems - Exercise capacity METS (RN): 4 METS ANE Patient History - Allergies Allergies/Adverse Reactions: No Known Allergies Allergy (Unverified 12/14/16 13:50) - Home Medications Home Medications: Albuterol [Proventil Inhaler HFA (*)] 2 puffs IH Q8H PRN 12/14/16 [Last Taken ] Bisacodyl [Dulcolax] 10 mg RC AD PRN 12/14/16 [Last Taken 03/13/17] Escitalopram Oxalate [Lexapro] 5 mg PO DAILY 12/14/16 [Last Taken 03/14/17 06:00 ] Famotidine [Pepcid 20 MG (*)] 20 mg PO DAILY 12/14/16 [Last Taken 03/13/17] Fluticasone Nasal [Flonase Nasal [place]] 2 sprays NASAL BID PRN 12/14/16 [Last Taken 01/13/17] Furosemide [Lasix 40 MG (*)] 40 mg PO DAILY 12/14/16 [Last Taken 03/13/17] Insulin Detemir [Levemir] 10 unit SQ HS 12/14/16 [Last Taken 03/13/17] Multivitamins [Multivitamin (*)] 1 each PO DAILY 12/14/16 [Last Taken 03/13/17] Ondansetron Odt [Zofran Odt 4 mg (*)] 4 mg PO Q6H PRN 12/14/16 [Last Taken 03/14 06:00] Oxycodone HCl [Dazidox] 10 mg PO Q8H PRN 12/14/16 [Last Taken 03/13/17] Rifaximin [Xifaxan] 550 mg PO BID 12/14/16 [Last Taken 03/14/17] Spironolactone [Aldactone] 50 mg PO BID 12/14/16 [Last Taken 03/13/17] guaiFENesin [Mucinex 600 MG (*)] 1,200 mg PO Q12H PRN 12/14/16 [Last Taken 03/13] traZODone [traZODONE 50MG (*)] 25 mg PO HS PRN 12/14/16 [Last Taken 03/07/17] - NPO status NPO Since - Liquids (Date): 03/14/17 NPO Since - Liquids (Time): 06:00 NPO Since - Solids (Date): 03/13/17 NPO Since - Solids (Time): 09:00 - Smoking Hx Smoking Status: Current some day smoker - Family Anes Hx Family Hx Anesthesia Complications: NEG ANE Labs/Vital Signs - Labs Result Diagrams: 03/14/17 10:15 - Vital Signs Blood Pressure: 112/71 Heart Rate: 85 Respiratory Rate: 16 O2 Sat (%): 93 Height: 158.75 cm Weight: 45.813 kg ANE Physical Exam - Airway Neck exam: FROM Mallampati Score: Class 2 Mouth exam: normal dental/mouth exam - Pulmonary Pulmonary: clear to auscultation - Cardiovascular Cardiovascular: regular rate and rhythym - ASA Status ASA Status: III ANE Anesthesia Plan Anesthesia Plan: general endotracheal anesthesia
[2017-03-14] MEDS ORDERED: PROPOFOL/EMULSION 500 MG/50 ML BOTTLE IV ONE (11:43)
[2017-03-14] MEDS ORDERED: LIDOCAINE 2% 5 ML SDV ONE (11:44)
--- NOTE | 2017-03-14 11:46 | PDGENHP ---
History & Physical Chief Complaint: rectal bleeding, periumbilical abdominal pain Relevant Physical Exam: GEN: NAD. Cardiac: RRR. Lungs: CTA B. Abd: Soft, nt, nd
[2017-03-14] MEDS ORDERED: PROPOFOL 200 MG/20 ML VIAL ONE (11:49)
--- NOTE | 2017-03-14 12:10 | POSTOPPROG ---
Post Op Note Date of Operation: 03/14/17 Surgeon: Arya Woodson Pre-op Diagnosis: Rectal bleeding, LLQ abdominal pain Post-op Diagnosis: Normal colonoscopy Indication: Rectal bleeding, LLQ abdominal pain Procedure: Colonoscopy Findings: Normal colonoscopy Inf/Abcess present in the surg proc area at time of surgery?: No
--- NOTE | 2017-03-14 12:23 | POSTANESTH ---
Post Anesthetic Evaluation Cardiovascular Status: Tx Hyper/Hypo-tension Respiratory Status: Normal, Stable Level of Consciousness/Mental Status: Mildly Sleepy, Arousable Pain Control: Adequate, Prn Tx Ordered Nausea/Vomiting Control: Adequate, Prn Tx Ordered Complications Possibly Related to Anesthesia: None Noted
[2017-03-14] MEDS ORDERED: fentaNYL 100 MCG/2 ML INJ ONE (12:37)
[2017-03-14] MEDS: fentaNYL 100 MCG/2 ML INJ IVP PRN ×2 (12:39→12:55)
[2017-03-14 12:47] VITALS: TEMP 97.7
[2017-03-14 14:11] VITALS: BP 98/62; RESP 16; O2SAT 93
--- NOTE | 2017-03-14 15:17 | GPN ---
[f rep st] PROCEDURE NOTE PREPROCEDURE DIAGNOSIS: Rectal bleeding. Left lower quadrant abdominal pain. POSTPROCEDURE DIAGNOSIS: Rectal bleeding. Left lower quadrant abdominal pain. PROCEDURE: Colonoscopy. MEDICATIONS: Monitored anesthesia care. INDICATIONS: The patient is a 47-year-old female with history of alcoholic hepatitis and cirrhosis, who also has a history of rectal bleeding and left lower quadrant abdominal pain. She is here for a colonoscopy. The risks and benefits of the procedure were discussed with the patient and consent obtained. Risks include, but not limited to, bleeding, perforation, and risks of sedation. The pat ient is ASA class 2. DESCRIPTION OF PROCEDURE: The pediatric colonoscope was advanced to the terminal ileum, which appea rs normal. The ileocecal valve, appendiceal orifice, cecum, ascending colon, hepatic flexure, trans verse colon, splenic flexure, descending colon, sigmoid colon, and rectum were normal. Retroflexed views in the rectum were normal. IMPRESSION: Normal colonoscopy. RECOMMENDATIONS: 1. Discharged home with escort. 2. Advance diet as tolerated. 3. Continue current medications. 4. Repeat colonoscopy in 10 years for screening purposes. Thank you for allowing me to participate in the care of your patient. Please do not hesitate to lazaro rebekah with questions. /[id number]/MODL
== END 2017-03-14 14:09 | disposition home or self-care (01) ==
LOC: FSGY 09:12
PROVIDERS: ATTEND Internal Medicine Gastroenterology
PROC: 0DJD8ZZ Inspection of Lower Intestinal Tract, Via Natural or Artificial Opening Endoscopic (ICD-10-PCS; principal; 2017-03-14 11:00)
DX: K62.5 Hemorrhage of anus and rectum (principal); R10.32 Left lower quadrant pain; K21.9 Gastro-esophageal reflux disease without esophagitis; K70.30 Alcoholic cirrhosis of liver without ascites; K70.10 Alcoholic hepatitis without ascites
CPT/HCPCS: J2704; J3010